=== PATIENT | female | born 1980 | race African-American/Black ===

== ENCOUNTER 2018-04-03 21:55 | Emergency (ER) | payer MEDICAID ==
[~2018-04-03] VITALS: Ht 157.5 cm; Wt 63.0 kg
[2018-04-03] MEDS ORDERED: KETOROLAC 30MG/ML VIAL IV STA (22:23)
[2018-04-03] MEDS ORDERED: SODIUM CHLORIDE 0.9% 1,000 ML IV ONE (22:23)
[2018-04-03] MEDS ORDERED: MAGNESIUM/ALUMINUM HYDROXIDE/SIMETHICONE 30ML UDC PO STA (22:23)
[2018-04-03] MEDS ORDERED: ONDANSETRON HCL 4MG/2ML INJ IV STA (22:23)
[2018-04-03 22:45] LABS: BASOPHILS % 1.6 % (0.0-2.0); EOSINOPHILS % 4.1 % (0.0-5.0); HEMATOCRIT. 35.6 % (36.0-48.0); HEMOGLOBIN. 12.1 g/dL (12.0-16.0); MEAN CORPUSCULAR HEMOGLOBIN 31.1 pg (28.0-32.0); MEAN CORPUSCULAR VOLUME 91.6 fL (81.0-99.0); MEAN PLATELET VOLUME 8.5 fl (7.4-10.4); MONOCYTES % 10.6 % (2.0-8.0); NEUTROPHILS % 23.7 % (40.0-76.0); PLATELET 315 x1000/uL (130-400); RED BLOOD CELL COUNT 3.89 mill/uL (4.2-5.4); RED CELL DISTRIBUTION WIDTH 13.3 % (11.6-14.6)
[2018-04-03 22:51] LABS: CHLORIDE 106 mEq/L (98-107)
[2018-04-03 22:55] LABS: ETHANOL BLOOD < 10 mg/dL
[2018-04-04 00:25] VITALS: BP 110/63
[2018-04-04 01:24] LABS: CLARITY URINE CLEAR (CLEAR); COLOR URINE YELLOW (YELLOW); KETONES URINE NEGATIVE (NEGATIVE); LEUKOCYTE ESTERASE URINE 1+ (NEGATIVE); NITRITE URINE NEGATIVE (NEGATIVE); OCCULT BLOOD URINE NEGATIVE (NEGATIVE); PROTEIN URINE NEGATIVE (NEGATIVE); SPECIFIC GRAVITY URINE 1.007 (1.005-1.030); UROBILINOGEN URINE 0.2 E.U./dL (0.2-1.0)
[2018-04-04 01:41] LABS: *AMPHETAMINES SCREEN URINE NEGATIVE (NEGATIVE); *BARBITURATES SCREEN URINE NEGATIVE (NEGATIVE); *BENZODIAZEPINES SCREEN URINE NEGATIVE (NEGATIVE)
[2018-04-04 01:42] LABS: *COCAINE SCREEN URINE NEGATIVE (NEGATIVE); CANNABINOID URINE SCREEN NEGATIVE (NEGATIVE); METHADONE URINE SCREEN NEGATIVE (NEGATIVE); OPIATES URINE SCREEN NEGATIVE (NEGATIVE); PHENCYCLIDINE URINE SCREEN NEGATIVE (NEGATIVE)
== END 2018-04-04 02:20 | disposition home or self-care (01) ==
LOC: ER 21:55
DX: R10.11 Right upper quadrant pain (principal); J45.909 Unspecified asthma, uncomplicated; F31.9 Bipolar disorder, unspecified
CPT/HCPCS: 36415; 76705; 80053; 80305; 81003; 81025; 83690; 85025; 99284; G0482; J7030

== ENCOUNTER 2018-08-01 14:25 | Emergency (ER) | payer MEDICAID ==
[~2018-08-01] VITALS: Ht 160 cm; Wt 60.0 kg
[2018-08-01 14:38] VITALS: BP 135/80
[2018-08-01] MEDS ORDERED: ONDANSETRON HCL 4MG/2ML INJ IV STA (17:38)
[2018-08-01] MEDS ORDERED: SODIUM CHLORIDE 0.9% 1,000 ML IV ONE (17:38)
== END 2018-08-01 17:43 | disposition left against medical advice (07) ==
LOC: ER 14:25
DX: R10.9 Unspecified abdominal pain (principal); Z53.21 Procedure and treatment not carried out due to patient leaving prior to being seen by health care provider
CPT/HCPCS: J7030

== ENCOUNTER 2019-07-23 17:33 | Emergency (ER) | payer MEDICAID ==
[~2019-07-23] VITALS: Ht 152.4 cm; Wt 66.8 kg
[2019-07-23] MEDS ORDERED: ALBUTEROL (17:54)
[2019-07-23] MEDS: VISCOUS LIDOCAINE 2% 15 ML UDC MM STA ×2 (20:43→20:59)
[2019-07-23] MEDS: ONDANSETRON 4MG ODT PO ONE ×2 (20:43→21:00)
[2019-07-23] MEDS: FAMOTIDINE 20MG TABLET PO ONE ×2 (20:43→21:00)
[2019-07-23 20:54] LABS: BASOPHILS % 1.2 % (0.0-2.0); EOSINOPHILS % 1.4 % (0.0-5.0); HEMATOCRIT. 38.9 % (36.0-48.0); HEMOGLOBIN. 13.3 g/dL (12.0-16.0); LYMPHOCYTES % 45.1 % (20.0-50.0); MEAN CORPUSCULAR HEMOGLOBIN 31.1 pg (28.0-32.0); MEAN CORPUSCULAR VOLUME 91.1 fL (81.0-99.0); MEAN PLATELET VOLUME 8.3 fl (7.4-10.4); MONOCYTES % 7.2 % (2.0-8.0); NEUTROPHILS % 45.1 % (40.0-76.0); PLATELET 343 x1000/uL (130-400); RED BLOOD CELL COUNT 4.27 mill/uL (4.2-5.4); RED CELL DISTRIBUTION WIDTH 13.4 % (11.6-14.6)
[2019-07-23 20:56] LABS: CHLORIDE 106 mEq/L (98-107)
[2019-07-23] MEDS ORDERED: ACETAMINOPHEN 500MG TABLET PO ONE (21:00)
[2019-07-23 21:02] LABS: HCG SCREEN NEGATIVE
[2019-07-23 21:19] LABS: CLARITY URINE CLEAR (CLEAR); COLOR URINE YELLOW (YELLOW); KETONES URINE 1+ (NEGATIVE); LEUKOCYTE ESTERASE URINE NEGATIVE (NEGATIVE); NITRITE URINE NEGATIVE (NEGATIVE); OCCULT BLOOD URINE NEGATIVE (NEGATIVE); PH URINE 6.5 (4.5-8.0); PROTEIN URINE NEGATIVE (NEGATIVE); SPECIFIC GRAVITY URINE 1.006 (1.005-1.030); UROBILINOGEN URINE 0.2 E.U./dL (0.2-1.0)
[2019-07-23 23:36] VITALS: BP 126/80
== END 2019-07-23 23:55 | disposition home or self-care (01) ==
LOC: ER 17:33
DX: N85.2 Hypertrophy of uterus (principal); K57.90 Diverticulosis of intestine, part unspecified, without perforation or abscess without bleeding; R03.0 Elevated blood-pressure reading, without diagnosis of hypertension; J45.909 Unspecified asthma, uncomplicated; Z87.891 Personal history of nicotine dependence
CPT/HCPCS: 36415; 74176; 80053; 81003; 81025; 84703; 85025; 99284; Q0162

== ENCOUNTER 2020-03-12 14:50 | Emergency (ER) | payer MEDICAID ==
[~2020-03-12] VITALS: Ht 152.4 cm; Wt 73.8 kg
[~2020-03-12 14:50] MED LIST: ALBUTEROL
[2020-03-12 15:50] VITALS: BP 118/78
[2020-03-12] MEDS ORDERED: FLUCONAZOLE 100MG TABLET PO ONE (20:00)
[2020-03-12] MEDS ORDERED: FLUCONAZOLE 150MG TABLET PO NR (20:00)
[2020-03-12 20:06] LABS: CLARITY URINE CLEAR (CLEAR); COLOR URINE YELLOW (YELLOW); KETONES URINE NEGATIVE (NEGATIVE); LEUKOCYTE ESTERASE URINE NEGATIVE (NEGATIVE); NITRITE URINE NEGATIVE (NEGATIVE); OCCULT BLOOD URINE NEGATIVE (NEGATIVE); PH URINE 5.5 (4.5-8.0); PROTEIN URINE NEGATIVE (NEGATIVE); SPECIFIC GRAVITY URINE 1.039 (1.005-1.030)
[2020-03-12] MEDS ORDERED: AZITHROMYCIN 500 MG TABLET PO ONE (20:30)
[2020-03-12] MEDS ORDERED: CEFTRIAXONE SODIUM 250 MG/VIAL IM ONE (20:30)
== END 2020-03-12 21:33 | disposition home or self-care (01) ==
LOC: ER 14:50
DX: Z20.2 Contact with and (suspected) exposure to infections with a predominantly sexual mode of transmission (principal); D25.9 Leiomyoma of uterus, unspecified; B37.3 Candidiasis of vulva and vagina; Z71.89 Other specified counseling
CPT/HCPCS: 81003; 93005; 96372; 99284; J0696

== ENCOUNTER 2020-11-18 19:13 | Emergency (ER) | payer MEDICAID ==
[~2020-11-18] VITALS: Ht 152.4 cm; Wt 74.0 kg
[2020-11-18 19:22] VITALS: BP 121/82
[2020-11-18 22:49] LABS: HEMATOCRIT. 35.9 % (36.0-48.0); HEMOGLOBIN. 11.9 g/dL (12.0-16.0); LYMPHOCYTES % 52.3 % (20.0-50.0); MEAN CORPUSCULAR VOLUME 90.2 fL (81.0-99.0); MONOCYTES % 13.9 % (2.0-8.0); NEUTROPHILS % 28.8 % (40.0-76.0); PLATELET 355 x1000/uL (130-400); RED BLOOD CELL COUNT 3.98 mill/uL (4.2-5.4); RED CELL DISTRIBUTION WIDTH 13.3 % (11.6-14.6)
[2020-11-18 22:56] LABS: CHLORIDE 110 mEq/L (98-107)
[2020-11-18 22:57] LABS: HCG SCREEN NEGATIVE
[2020-11-18 23:28] LABS: CLARITY URINE CLEAR (CLEAR); COLOR URINE YELLOW (YELLOW); KETONES URINE NEGATIVE (NEGATIVE); LEUKOCYTE ESTERASE URINE NEGATIVE (NEGATIVE); NITRITE URINE NEGATIVE (NEGATIVE); OCCULT BLOOD URINE NEGATIVE (NEGATIVE); PH URINE 6.5 (4.5-8.0); PROTEIN URINE NEGATIVE (NEGATIVE); SPECIFIC GRAVITY URINE 1.015 (1.005-1.030)
[2020-11-19] MEDS ORDERED: NAPR-1176 MT (01:08)
== END 2020-11-19 01:00 | disposition home or self-care (01) ==
LOC: ER 19:13
DX: D25.9 Leiomyoma of uterus, unspecified (principal); J45.909 Unspecified asthma, uncomplicated; Z98.890 Other specified postprocedural states
CPT/HCPCS: 36415; 76700; 76830; 76856; 80053; 81003; 84703; 85025; 99285

== ENCOUNTER 2021-04-19 21:34 | Emergency (ER) | payer MEDICAID ==
[~2021-04-19] VITALS: Ht 152.4 cm; Wt 73.0 kg
[~2021-04-19 21:34] MED LIST changes: +NAPR-1176 MT
[2021-04-19 21:39] VITALS: BP 120/83
== END 2021-04-20 00:42 | disposition left against medical advice (07) ==
LOC: ER 21:34
DX: Z53.21 Procedure and treatment not carried out due to patient leaving prior to being seen by health care provider (principal)